=== PATIENT | male | born 1935 | race Caucasian/White ===

== ENCOUNTER 2016-09-07 08:12 | Inpatient (IN) | payer MEDICARE, OTHER ==
[2016-08-31 11:22] LABS: BASOPHILS 0.6 %; BASOPHILS ABSOLUTE 0.05 10/3/uL (0.0-0.16); EOSINOPHILS 4.4 %; EOSINOPHILS ABSOLUTE 0.38 10/3/uL (0.0-0.53); HEMATOCRIT 39.1 % (40.0-51.0); HEMOGLOBIN 13.4 g/dL (13.6-17.8); IMMATURE GRANULOCYTES 0.4 %; IMMATURE GRANULOCYTES ABSOLUTE 0.03 10/3/uL (0.0-0.11); LYMPHOCYTES 27.6 %; LYMPHOCYTES ABSOLUTE 2.36 10/3/uL (0.67-4.30); MEAN CORPUS HGB CONC 34.3 g/dL (32.0-36.0); MEAN CORPUSCULAR HEMOGLOB 30.2 pg (26.0-34.0); MEAN CORPUSCULAR VOLUME 88.1 fL (80-100); MONOCYTES 8.3 %; MONOCYTES ABSOLUTE 0.71 10/3/uL (0.21-1.20); NEUTROPHILS 58.7 %; NEUTROPHILS ABSOLUTE 5.02 10/3/uL (2.02-8.40); PLATELET COUNT 280 10/3/uL (150-400); RBC DISTRIBUTION WIDTH 14.6 % (12.0-16.0); RED CELL COUNT 4.44 10/6/uL (4.7-6.1); WHITE BLOOD CELLS 8.6 10/3/uL (4.5-10.5)
[2016-08-31 11:23] LABS: MANUAL DIFF NO %
[2016-08-31 11:25] LABS: INTERNATIONAL NORMAL RATI 1.1 UNITS (-); PROTIME (NOT ORD) 14.5 SEC (12.0-14.5)
[2016-08-31 11:28] LABS: ASCORBIC ACID (UR NOT ORDER) NEG (NEG); BILIRUBIN, URINE NEGATIVE (NEG); KETONE, URINE NEGATIVE (NEG); LEUKOCYTE ESTERASE(NOT OR NEG (NEG); WBC (NOT ORDERED) (RFLEX) < 1 (0-5)
[2016-08-31 11:43] LABS: % IRON SAT 33 % (20-50); A/G RATIO 0.8 (0.7-1.9); ALBUMIN 3.3 G/DL (3.5-5.0); ALKALINE PHOSPHATASE 105 U/L (45-117); BUN (BLOOD UREA NITROGEN) 17 MG/DL (6-23); CALCIUM, SERUM 9.2 MG/DL (8.5-10.4); CHLORIDE, SERUM 104 MMOL/L (96-112); CO2 (CARBON DIOXIDE) 29 MMOL/L (24-34); CREATININE 1.05 MG/DL (0.70-1.30); GFR AFRICAN AMERICAN 78 ML/MIN (>=60); GFR NON AFRICAN AMERICAN 67 ML/MIN (>=60); GLUCOSE, SERUM 109 MG/DL (60-99); IRON BINDING CAPACITY 283 MCG/DL (250-450); IRON, SERUM 92 MCG/DL (35-150); POTASSIUM, SERUM 4.4 MMOL/L (3.5-5.3); SGOT(AST) 13 U/L (5-40); SGPT(ALT) 16 U/L (5-65); SODIUM, SERUM 139 MMOL/L (135-148); TOTAL BILIRUBIN 0.5 MG/DL (0-1.2); TOTAL PROTEIN 7.3 G/DL (6.0-8.5)
--- NOTE | ~2016-09-07 | OP ---
Record Of Operation [facility] [address] [place]. [id number] NAME: RADHA PAULINO : 37 STATUS : ADM IN PAT#: [id number] AGE: 81 ADM/REG DATE : 09/07/16 MR#: [id number] REPORT SERV DATE: 09/08/16 DICTATED BY: REFUGIO PARRA DATE: 09/07/16 REPORT STATUS : Draft TRANSCRIBED BY: MODL DATE: 09/07/16 DATE OF PROCEDURE: 09/07/2016 PREOPERATIVE DIAGNOSES: 1. Coronary artery disease with angina. 2. Chronic systolic congestive heart failure (ejection fraction 15%). 3. Recent CVA with aphasia. 4. Cerebral vascular disease. 5. Hypertension. 6. Hyperlipidemia. POSTOPERATIVE DIAGNOSES: 1. Coronary artery disease with angina. 2. Chronic systolic congestive heart failure (ejection fraction 15%). 3. Recent CVA with aphasia. 4. Cerebral vascular disease. 5. Hypertension. 6. Hyperlipidemia. PROCEDURE PERFORMED: 1. Coronary artery bypass grafting x4, left internal mammary artery placed to left anterior descending, reverse saphenous vein graft placed to the first diagonal, reverse saphenous vein graft placed to the first obtuse marginal, reverse saphenous vein graft placed to the posterior descending artery. 2. Endoscopic vein harvest, saphenous vein from the right leg. 3. Transesophageal echocardiography. SURGEONS: Refugio Parra M.D. ASSISTANTS: César Alvarado and Ruben Mullins. ANESTHESIA: General with Dr. Correa. OFFICE AUTOMATION TECHNICIAN: Onofre Dillard M.D. PRIMARY CARE: Dr. Lino Rodriguez. INDICATIONS: This is a 81-year-old gentleman who has a history of stroke in January of last year that left him with aphasia. During his evaluation, he had an echocardiogram performed that demonstrated severely reduced ventricular function with EF of 15%. He was referred to Dr. Dillard after rehabilitation and underwent a viability study demonstrated significant areas of myocardium that appeared to be still viable. The patient was underwent cardiac catheterization, which demonstrated significant two-vessel coronary disease with 40% to 50% lesions in the RCA. Ventricular function was significantly reduced. We were asked to see the patient for possible coronary artery bypass grafting. We saw the patient at office and discussed this operation at length with him and his . After discussing the Record Of Operation [facility] [address] [address] NAME: RADHA PAULINO : 37 STATUS : ADM IN PAT#: [id number] AGE: 81 ADM/REG DATE : 09/07/16 MR#: [id number] REPORT SERV DATE: 09/08/16 DICTATED BY: REFUGIO PARRA DATE: 09/07/16 REPORT STATUS : Draft TRANSCRIBED BY: MODL DATE: 09/07/16 operations, its indication and risks, they wished to proceed. STS predicted mortality of about 8% and morbidity mortality about 20% were shared with the family. Preoperatively, the patient did have some of these films reviewed by Interventional Radiology at [place] and it was felt that the intracranial stenosis did not warrant intervention. FINDINGS AT OPERATION: 1. Cross-clamp 77 minutes. Total pump time 102 minutes. 2. The LAD was less than 1.5 mm moderately diseased. A 2.5 mm GUADARRAMA was anastomosed to it with fair runoff. This is a chronically occluded vessel. 3. The first diagonal was 1.5 mm and mildly diseased. A 4 mm RSVG was anastomosed to it with good runoff. 4. The first obtuse marginal was 1.75 mm, mildly diseased. A 4 mm RSVG was anastomosed to it with fair runoff. This was a small target and diffusely diseased. 5. The ramus intermedius was too small to graft. 6. The posterior descending artery was 2 mm, mildly diseased. A 4 mm RSVG was anastomosed to it with good runoff. 7. The vein quality was good. All grafts had good Doppler signal at the end of the case. 8. 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 9. RAHUL demonstrated reduced anterolateral wall function with mild mitral and tricuspid valve insufficiency. PATHOLOGIC SPECIMENS: None. DESCRIPTION OF PROCEDURE: The patient was brought to the operating suite where general anesthesia was induced. Airway was secured with an endotracheal tube. Lines secured by Anesthesia. Schafer catheter was placed. The patient's chest, abdomen, groin, and legs were prepped with Hibiclens and ChloraPrep and draped with Ioban sterile sheets. RAHUL probe was placed by Dr. Correa and examination carried out in my attendance and discussed with Dr. Correa. The saphenous vein was harvested from the right leg using endoscopic technique. Briefly, the vein was cut directly down upon through a 2 cm incision and placed at the medial aspect of the right knee. Then, using VasoView trocars, the vessel was dissected from the surrounding subcutaneous tissue and fat. The side branches were identified, ligated, divided with cautery. Once adequate length of vein had been dissected, a counter incision made up in the groin and in the lower leg. The vein was ligated, divided, and brought through a knee incision. The vein quality was good. The leg was made hemostatic and closed in layers with absorbable suture. The skin was closed in subcuticular fashion. Next, a midline sternal incision was made and the sternum opened with a saw. The left hemithorax was elevated and the endothoracic fascia was incised. The side branch of the JUSTINO were clipped and divided. Once the JUSTINO was completely dissected, the patient was anticoagulated with heparin and chest tube was placed to the left pleural cavity. The JUSTINO was clipped and divided distally. There was good flow through the JUSTINO and its pedicle was infiltrated with papaverine. Record Of Operation [facility] [address] [place]. [address] NAME: RADHA PAULINO : 37 STATUS : ADM IN PAT#: [id number] AGE: 81 ADM/REG DATE : 09/07/16 MR#: [id number] REPORT SERV DATE: 09/08/16 DICTATED BY: REFUGIO PARRA DATE: 09/07/16 REPORT STATUS : Draft TRANSCRIBED BY: AILEEN DATE: 09/07/16 Next, the Andres retractor was placed in the pericardium over from innominate vein. The diaphragm was T'd and tacked to the side of the chest wall. Cannulation pursestring sutures were placed, and cannulation was carried out in a routine manner. A retrograde cardioplegia cannula was placed in the coronary sinus. When all was in readiness, the patient was placed on cardiopulmonary bypass. The distal targets were marked out on the heart as described in the findings. Then, a heart support was placed. The aorta was crossclamped and initial dose of cold blood cardioplegia solution was given in a combination of antegrade and retrograde fashion, then in a retrograde manner following proximal anastomoses. Following the first dose cardioplegia, the heart was positioned for the PDA graft. Arteriotomy was made. The vein graft was trimmed and anastomosed to it with 7-0 Prolene. The vein graft was measured to the right side of the ascending aorta where it was divided. We then positioned the heart for the obtuse marginal graft. Another arteriotomy was made, and the vein graft was trimmed and anastomosed to it with 7-0 Prolene. This vein graft was then measured back to the left side of the ascending aorta where it was divided. Next, the proximal ends of these two vein grafts were anastomosed to 5 mm punch aortotomy with 6-0 Prolene. Another dose of cardioplegia was given, and we positioned the heart for the diagonal graft. Arteriotomy was made. The vein graft trimmed and anastomosed to it with 7- 0 Prolene. This vein graft was measured back to the left side of the ascending aorta where it was divided. It was later anastomosed to a 5 mm punch aortotomy with 6-0 Prolene. We then positioned the heart for the LAD graft. Warming was begun. A long arteriotomy was made in chronically occluded LAD. This vessel was small. The JUSTINO was brought out the left chest through a notch in the pericardium over the pulmonary artery. The JUSTINO was opened and anastomosed to the LAD with a running suture of 8-0 Prolene. The endothoracic fascia was tacked to epicardium. The patient was placed in Trendelenburg, and a final dose of warm blood cardioplegia was given in a retrograde fashion. Ventricular and atrial pacing wires were placed. Following the last dose of cardioplegia and deairing of the aorta, aortic cross clamp was removed. The distal and proximal anastomoses were inspected and made hemostatic. Doppler demonstrated good flow through the grafts. The heart was cardioverted twice using 10 joules of energy and the internal paddles. Loading dose of amiodarone was started. Ventilation was begun. The heart was paced atrially at rate of 80. When the heart demonstrated good contractility, it was allowed to fill and eject. When deairing was completed, the patient was taken out of Trendelenburg, and the ascending aortic vent was removed and these pursestring sutures tied and reinforced. The patient was weaned from cardiopulmonary bypass with inotropic support. The venous cannula was removed and these pursestring sutures tied. RAHUL examination demonstrated improved ventricular function, it was still reduced. There was mild mitral valve insufficiency. Protamine was administered by Anesthesia and following a period of hemodynamic stability, Record Of [facility] [address] [place]. [address] NAME: RADHA PAULINO : 37 STATUS : ADM IN PAT#: [id number] AGE: 81 ADM/REG DATE : 09/07/16 MR#: [id number] REPORT SERV DATE: 09/08/16 DICTATED BY: REFUGIO PARRA DATE: 09/07/16 REPORT STATUS : Draft TRANSCRIBED BY: AILEEN DATE: 09/07/16 the aortic cannula was removed, and these pursestring sutures tied and reinforced. The patient continued do well and chest was irrigated copiously with saline. Meticulous hemostasis was obtained. Hemasorb was placed along the cut edge of the sternum. Once hemostasis was assured, the pericardium was draped over the anterior surface of heart and tacked in position. Doppler demonstrated good flow through the grafts following protamine administration. Then, chest tubes were placed and the sternum reapproximated with 8 sternal wires. The clavipectoral fascia and linea alba closed with #1 Stratafix. The subcutaneous tissue was closed with 2-0 Stratafix and skin was closed in subcuticular fashion. The patient tolerated the procedure well. There were no complications. Sponge and needle counts were correct. DISPOSITION: The patient was left intubated, sedated, and transported to the intensive care unit in a stable condition. OLGA/AILEEN Refugio Parra M.D. / [id number] CC: Dav Mar MD R. Edward Bowers
--- NOTE | ~2016-09-07 | HP ---
History And Physical [address] [place]. [address] NAME: RADHA PAULINO : 37 STATUS : DIS IN PAT#: [id number] AGE: 81 ADM/REG DATE : 09/07/16 MR#: [id number] REPORT SERV DATE: 10/19/16 DICTATED BY: OTONIEL HERNANDEZ DATE: 10/19/16 REPORT STATUS : Draft TRANSCRIBED BY: MODJesika DATE: 10/19/16 DATE OF ADMISSION: 09/07/2016 REFERRING OCCUPATIONAL THER: Onofre Dillard MD. CHIEF COMPLAINT: "I have a heart problem". HISTORY OF PRESENT ILLNESS: This is a 81-year-old gentleman with prior history of CVA last January. This left him with significant aphasia, but with good functional status. During his evaluation for his stroke, he had an echocardiogram that demonstrated reduced left ventricular function, with ejection fraction of 15% to 20%. Followup cardiology appointment was scheduled, and he underwent cardiac catheterization that demonstrated significant coronary artery disease, and he had a viability study because of his low EF. This demonstrated significant reversible myocardium. On echo, he also was noted to have mild to moderate mitral and tricuspid insufficiency. The patient was seen in the office. At that time, he had no unstable anginal-type symptoms. He reported some mild substernal discomfort and shortness of breath with exertion. He had some mild peripheral edema. He did continue to have significant aphasia. There was implantable loop recorder interrogation that demonstrated only normal sinus rhythm. 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 This was discussed with Renny Gallardo, interventionalist at [place], and he felt that no intervention or surgery was indicated. We talked with the patient and his in the office about possible coronary artery bypass grafting for his 2-vessel coronary artery disease and potential reversible myocardial ischemia. Dr. Parra talked with him about the risks and usual perioperative course, and this is all documented in our office notes. The patient presents for surgery as scheduled. PRIOR MEDICAL HISTORY: Significant for coronary artery disease, ischemic cardiomyopathy, acute on chronic systolic heart failure, stroke, and hypertension. Also, has history of diabetes mellitus, anxiety, depression. PRIOR SURGICAL HISTORY: Significant for right total knee arthroplasty, previous herniorrhaphy, and coronary arteriogram. SOCIAL HISTORY: He is , never smoker, and does not use alcohol or illicit drugs. He worked out regularly at a health club prior to his stroke. FAMILY HISTORY: Significant for father with diabetes mellitus type 2 and stroke, mother with type 2 diabetes mellitus, hypertension, and congestive heart failure, one sister with diabetes mellitus. ALLERGIES: INCLUDE ATORVASTATIN. History And Physical [address] [address] NAME: RADHA PAULINO : 37 STATUS : DIS IN PAT#: [id number] AGE: 81 ADM/REG DATE : 09/07/16 MR#: [id number] REPORT SERV DATE: 10/19/16 DICTATED BY: OTONIEL HERNANDEZ DATE: 10/19/16 REPORT STATUS : Draft TRANSCRIBED BY: AILEEN DATE: 10/19/16 MEDICATIONS: Include aspirin, clopidogrel, Crestor, spironolactone, vitamin B12, and vitamin D3. REVIEW OF SYSTEMS: GENERAL: Positive for weight loss since his stroke, negative for malaise, fevers, chills, or night sweats. ENT: Positive for presbyopia and hearing loss. RESPIRATORY: Negative for hemoptysis, paroxysmal nocturnal dyspnea or orthopnea, negative for wheezing, positive for snoring. CV: Positive for his chest discomfort, negative for diaphoresis, orthopnea, palpitations, syncope, or murmur. No paroxysmal nocturnal dyspnea. VASCULAR: Negative for claudication. Negative for varicosities, positive for edema. GI: Negative for bleeding at stool or vomiting blood. Negative for diarrhea or constipation. : Negative for hematuria, nocturia, or frequency. Negative for kidney problems or prostate problems. ENDOCRINE: Negative for tremors or goiter. NEURO: Negative for dizziness, seizures. Positive for memory loss, previous stroke. PSYCH: Positive for anxiety and depression. MUSCULOSKELETAL: Negative for myalgia. Positive for joint pain. HEME/ONC: Negative for blood clots or easy bruising. PHYSICAL EXAMINATION: GENERAL: He is a pleasant elderly male, in no acute distress. He is well nourished and well developed. HEENT: Normocephalic, atraumatic. Pupils equal, round, reactive to light and accommodation, sclerae clear, conjunctivae pink. Oral and buccal mucosa: [place], moist, no lesions or masses. NECK: Supple, no restricted range of motion. No carotid bruits. No jugular venous distention. CHEST: Clear to auscultation, no use of accessory muscles, no chest wall tenderness. No deformity. CV: Regular rate and rhythm without murmur or rub. He has palpable and symmetric central and peripheral pulses, no clubbing, cyanosis, or edema. No lower extremity varicosities, no edema, and he has palpable and symmetric central and peripheral pulses. ABDOMEN: Soft, obese, nontender with normoactive bowel sounds. No hepatosplenomegaly. /RECTAL: Declined. MUSCULOSKELETAL: No kyphoscoliosis. No asymmetry. He ambulates without assistance and is able to exercise. SKIN, HAIR, AND NAILS: Warm and dry without lesions, masses, or rashes. Good hygiene. NEURO/PSYCH: He is alert, and has expressive aphasia. He has facial asymmetry with weakness on the right. He is oriented to day, date, place, and person, and mood is appropriate. DATA: His coronary arteriogram and viability study which were reviewed in the office. IMPRESSION: Significant 2-vessel coronary artery disease with severely reduced left History And Physical [address] [address] NAME: RADHA PAULINO : 37 STATUS : DIS IN PAT#: [id number] AGE: 81 ADM/REG DATE : 09/07/16 MR#: [id number] REPORT SERV DATE: 10/19/16 DICTATED BY: OTONIEL HERNANDEZ DATE: 10/19/16 REPORT STATUS : Draft TRANSCRIBED BY: MODL DATE: 10/19/16 ventricular ejection fraction. His viability study demonstrated reversible myocardial ischemia. We discussed possible bypass surgery with the patient and his in the office and he indicated his understanding and agreement with the plan. Plan is to proceed with coronary artery bypass grafting on date of admission. MSL/MODL Otoniel Hernandez N.P. / [id number] CC: Dav Mar
--- NOTE | ~2016-09-07 | CN ---
Consultation Report [facility] [address] [place]. [address] NAME: RADHA PAULINO : 39 STATUS : ADM IN PAT#: [id number] AGE: 81 ADM/REG DATE : 09/07/16 MR#: [id number] REPORT SERV DATE: 09/09/16 DICTATED BY: DEYSI GODINEZ DATE: 09/08/16 REPORT STATUS : Draft TRANSCRIBED BY: MODL DATE: 09/08/16 CONSULTATION DATE OF CONSULTATION: 09/08/2016 REASON FOR CONSULTATION: Consulted for diabetes management. IDENTIFYING DATA: LINOTYPIST: In the past Lewis Hess M.D., now Onofre Dillard MD. CARDIAC SURGEON: Dominic Parra M.D. ORTHOPEDIST IN THE PAST: Ishan Treadwell M.D. HISTORY OF PRESENT ILLNESS: This is a very pleasant 81-year-old gentleman who has a history of a previous stroke in January of last year for which he is now expressive aphasia and memory loss. During that evaluation, the patient had an echocardiogram that showed severely reduced ventricular function with an EF of 15% to 20%. He was referred to Dr. Dillard after rehab and underwent a viability study that showed areas of the myocardium that were still viable. The patient had a cardiac catheterization, which showed a 2-vessel coronary disease with 40% to 50% lesions in RCA. His ventricular function was reduced. He is presently admitted under Dr. Dominic Parra for which he had a CABG x4, with VasoView, RAHUL, REVH, GUADARRAMA. He is postop on 09/07/2016, this is postop day #1. The patient is on an insulin drip per protocol for postop on CABG surgery. He does have a history of being diabetic type 2 along with hyperlipidemia, coronary artery disease with angina, dysrhythmias, GERD, chronic systolic heart failure, and previous CVA and TIA, and hypertension. A hospitalist group has been consulted for diabetes management to wean the patient from the insulin drip and provide insulin coverage. The patient's history was obtained through careful interview with the patient, which was difficult. He has expressive aphasia and some memory loss. Also coupled with review of [employer], [employer], other consultants' notes, and old medical records. His is not available for consultation at present time. PAST MEDICAL HISTORY: 1. CVA. 2. TIA. 3. Hypertension. 4. Cardiomyopathy. 5. Wears reading glasses. 6. Chronic systolic heart failure. 7. GERD. 8. Hemorrhoids. Consultation Report [place] [address] [place]. [address] NAME: RADHA PAULINO : 37 STATUS : ADM IN PAT#: [id number] AGE: 81 ADM/REG DATE : 09/07/16 MR#: [id number] REPORT SERV DATE: 09/09/16 DICTATED BY: DEYSI GODINEZ DATE: 09/08/16 REPORT STATUS : Draft TRANSCRIBED BY: AILEEN DATE: 09/08/16 9. Hay fever. 10.Presbyopia. 11.Angina. 12.Dysrhythmias. 13.Arthritis. 14.Diabetes type 2. 15.Anxiety. 16.Depression. 17.Mitral valve insufficiency. 18.Hyperlipidemia. 19.Coronary artery disease with angina. HOME MEDICATIONS: 1. Aspirin 81 mg p.o. daily. 2. Coreg 6.25 mg p.o. twice a day. 3. Vitamin D3 5000 units p.o. daily. 4. Plavix 75 mg p.o. daily. 5. Vitamin B12 1000 mcg p.o. daily. 6. Lasix 20 mg p.o. daily. 7. Glucotrol 5 mg p.o. before breakfast. 8. Lisinopril 10 mg p.o. twice a day. 9. Aldactone 25 mg p.o. daily. ALLERGIES: TO LISINOPRIL, WHICH CAUSES HAND SWELLING AND MUSCLE ACHES. SOCIAL HISTORY: The patient is . He does not smoke, drink, or use illicit drugs. He states he has two children, a daughter and a son, which the son is . He had a total of four children, which two of those were foster children. FAMILY HISTORY: 1. Father had diabetes type 2 and CVA; mother had CHF, diabetes type 2, hypertension; is at age 5353 years old. 2. Sister had diabetes type 2. SURGICAL HISTORY: 1. Bilateral total knee replacement, 2001. 2. Hernia surgery, which the patient notes was years ago. 3. Noted loop recorder on 02/2016. REVIEW OF SYSTEMS: Negative other than what is included in HPI. The patient is alert, oriented, has expressive aphasia. Does display some poor memory. He has no complaints of shortness of breath. No nausea and vomiting. No abdominal pain or diarrhea. Displays no agitation or confusion. No complaints of chest pain. No fever. Consultation Report [address] [place]. [address] NAME: RADHA PAULINO : 39 STATUS : ADM IN PAT#: [id number] AGE: 81 ADM/REG DATE : 09/07/16 MR#: [id number] REPORT SERV DATE: 09/09/16 DICTATED BY: DEYSI GODINEZ DATE: 09/08/16 REPORT STATUS : Draft TRANSCRIBED BY: AILEEN DATE: 09/08/16 PHYSICAL EXAMINATION: VITAL SIGNS: From today: Blood pressure 156/66, heart rate 67, respiratory rate 18, O2 saturation 94% on room air. GENERAL: This is a very pleasant 81-year-old male, resting in bed, in no acute distress. NEURO: His head is atraumatic, normocephalic. He is alert and oriented x3. He does have memory problems relating to a previous CVA and also expressive aphasia. His mood is pleasant and appropriate. NECK: Supple. Trachea is midline. No JVD noted. No obvious thyromegaly or lymphadenopathy. He does have a dressing from the old IV site to the right neck area. The dressing is clean, dry, and intact. EENT: Sclerae are nonicteric. Pupils are equal, reactive to light. His nares are patent. Mucous membranes moist. Tongue is midline without deviation. Soft palate rises equally on phonation. CHEST: No pain with palpation. The patient has a dressing to his midline sternotomy, pacing wires are beneath dressings bilaterally. LUNGS: Clear to auscultation bilaterally. The patient has normal respiratory effort. No increased work of breathing with conversation. CARDIOVASCULAR: S1, S2. The patient is on telemetry, displays a sinus rhythm with a rate of 64. ABDOMEN: Soft, nontender, with active bowel sounds. No palpable organomegaly. Last bowel movement was noted on 09/06/2016. EXTREMITIES: Normal distal pulses. No calf tenderness. No edema. Has bilateral TEDs intact for DVT prophylaxis. SKIN: Warm and dry. No unusual rashes or lesions. Normal color and turgor. PSYCH: The patient is pleasant and cooperative, appropriate mood and affect. He does realize that he has memory loss and tries to state that frequently. He also consistently relates to his having aphasia. SURGICAL WOUND SITE: His dressing is clean, dry, and intact. He does have chest tubes intact to the sternal area to atrium at -20 cm of suction with serosanguineous drainage noted. LABORATORY DATA: 1. Sodium 144, potassium 4.9, chloride 110, BUN 16, creatinine 0.84, GFR 97, glucose 134, calcium 8.5, magnesium 2.3. White blood cell 13.2, hemoglobin 10.0, hematocrit 29.2, platelets 148, INR 1.3. His present blood sugar was 145. On 09/08/2016, portable chest x-ray showed minimal bibasilar and left perihilar atelectasis. His chest tubes remain in place. 2. EKG shows normal sinus rhythm, rate of 63, where he had a left axis deviation and T- wave abnormality. 3. MRI of his head in 01/2016, showed a late hyperacute to acute infarct in the left temporoparietal region of the MCA territory. 4. In 02/04/2016, an echo showed an EF of 15% to 20%, [id number]-mr-[id number] MR and TR. 5. Carotid duplex also performed showed mild atherosclerotic plaque with a right carotid bulb and ICA. Consultation Report [address] [address] NAME: RADHA PAULINO : 39 STATUS : ADM IN [facility]#: [id number] AGE: 81 ADM/REG DATE : 09/07/16 MR#: [id number] REPORT SERV DATE: 09/09/16 DICTATED BY: DEYSI GODINEZ DATE: 09/08/16 REPORT STATUS : Draft TRANSCRIBED BY: AILEEN DATE: 09/08/16 ASSESSMENT AND PLAN: 1. Diabetes type 2. Aware. The patient's average blood sugars as noted were 117 to 170s. He had a hemoglobin A1c obtained on 08/31/2016, that showed his A1c as 6.0. The patient is on glipizide at home. He states his checks his blood sugars. She takes care of his medications, he cannot relate what medications he actually is taking. He is on an insulin drip at 1.5 unit/hour. His blood sugars are 130. His drip is discontinued now, we will give him Levemir 5 units sub[address] x[address] him on fingerstick blood sugars a.c. and h.s. with a level 2. We will check a fingerstick blood sugar at 2 a.m. x1. We will have a museum educator talk to him, but his does need to be available because she takes care of his needs at home. His glipizide is still on hold. After blood sugar checks, it may be noted that he needs to be on Levemir b.i.d. that will need to be assessed during the day when he is eating with his meals and noting his blood sugars. 2. Coronary artery disease. We are aware the patient has a history of hypertension, he is status post coronary artery bypass graft x4. He also has had a previous cerebrovascular accident. Management is per Cardiology. He is remaining on his Cordarone, aspirin, Lopressor, and Plavix per Cardiology. 3. Hyperlipidemia. Aware. The patient is continued on his Crestor. 4. AM labs. He has ordered a BMP, magnesium, CBC, PT and a PA and lateral chest x-ray for this a.m. The hospitalist group would like to thank you for this consultation. Let us know if we can be of any further assistance. LOGAN Deysi Godinez NP / [id number] CC: Dav Mar
--- NOTE | ~2016-09-07 | DS ---
Discharge Summary [facility] [address] [place]. [address] NAME: RADHA PAULINO : 39 STATUS : DIS IN PAT#: [id number] AGE: 81 ADM/REG DATE : 09/07/16 MR#: [id number] REPORT SERV DATE: 10/19/16 DICTATED BY: OTONIEL HERNANDEZ DATE: 10/19/16 REPORT STATUS : Draft TRANSCRIBED BY: MODL DATE: 10/19/16 ADMISSION DATE: 09/07/2016 DISCHARGE DATE: 09/11/2016 CONSULTANTS: 1. Hospitalist service for management of hyperglycemia and diabetes. 2. Trever Dillard MD for [facility]. PROCEDURES DURING ADMISSION: The patient underwent coronary artery bypass grafting x4 with left internal mammary artery to the left anterior descending, reverse saphenous vein graft to the first diagonal branch,reverse saphenous vein graft to the first obtuse marginal, reverse saphenous vein graft to the posterior descending artery, endoscopic vein harvest of the right leg, saphenous vein, and transesophageal echocardiogram. CONDITION AT DISCHARGE: Stable, improved. PLAN AT DISCHARGE: The patient was given written instructions and was discharged to home with family member. He had followup appointment with Dr. Dillard for 10/07/2016 at 09:15 a.m., one for Dr. Otoniel Hernandez on 10/28/2016 at 02:00 p.m. MEDICATIONS AT DISCHARGE: See medication discharge summary in [facility]. HOSPITAL COURSE: The patient was admitted and underwent the above-mentioned surgery on the date of admission. On postoperative day #1, he was awake and alert. He was extubated. Skin is warm, dry. His mediastinal left pleural chest tube had a total of 500 mL of serosanguineous drainage. His labs were within normal limits, hemoglobin was 8.9, hematocrit 25.9%, and his creatinine was 0.84. He was seen by Cardiology service. Plans were made for transfer to the cardiac step-down unit. On the second postoperative day, he was awake and alert. He had leukocytosis which was not unexpected after intraoperative steroids were given. His chest tubes were discontinued. His pacing wires were discontinued. His labs were unremarkable with improvement in his hemoglobin and hematocrit. On postoperative day 3, he was in a normal sinus rhythm. He had moved his bowels, and had plan for echocardiography to evaluate his ejection fraction. His CBC was stable, his white count had decreased to 12.8. Serum creatinine is stable at 0.87. His echocardiogram showed improvement in the ejection fraction to 35%. The patient was given instructions for discharge and Cardiology agreed with discharge to home. DICTATED BY: Micky Ba/AILEEN Otoniel Hernandez N.P. Discharge Summary [address] [address] NAME: RADHA PAULINO : 39 STATUS : DIS IN PAT#: [id number] AGE: 81 ADM/REG DATE : 09/07/16 MR#: [id number] REPORT SERV DATE: 10/19/16 DICTATED BY: OTONIEL HERNANDEZ DATE: 10/19/16 REPORT STATUS : Draft TRANSCRIBED BY: AILEEN DATE: 10/19/16 / [id number] CC: Dav Mar
[~2016-09-07 08:12] MED LIST: ADVIL PO; ASAB PO; ASABAYER PO; BANOPHEN25 MG PO; BEN25 PO; COREG6 PO; D 5000 PO; FOLIC PO; GLUCOTROL5 PO; L20 PO; LIPITOR40 PO; LOP25 PO; PLAVIX PO; PRIN10 PO; PROTONIX PO; SPIRO25 PO; ULTRAM50 PO; VITAMIN B-121000 MC1 PO; VITAMIN D31000 UNIT PO; ZYRTEC ALLGY10 MG PO
[2016-09-07 18:10] LABS: BE (BASE EXCESS) -2.1 MEQ/L (0 +/- 2.5); CARBOXYHEMOGLOBIN 0.3 % (0-3); HCO3 (ACTUAL BICARBONATE) 22.6 MEQ/L (23-27); HEMOBLOGIN CONTENT 11.7 G/DL (14-18); INSTRUMENT SERIAL # 11843; METHEMOGLOBIN 0.7 % (0-3); MODE SIMV; O2 CONTENT 17.4 VOL% (18-24); OPERATOR ID 32214; PCO2 (CO2 TENSION) 39 MMHG (35-45); PO2 (O2 TENSION) 456 MMHG (79-93); SAMPLE Arterial; TIDAL VOLUME 700 ML; pH 7.39 (7.37-7.43)
[2016-09-07 18:17] LABS: HEMOGLOBIN 10.8 g/dL (13.6-17.8)
[2016-09-07 18:21] LABS: HEMATOCRIT 31.2 % (40.0-51.0); PLATELET COUNT 91 10/3/uL (150-400)
[2016-09-07 18:25] LABS: INTERNATIONAL NORMAL RATI 1.7 UNITS (-); PARTIAL THROMBO TIME 37.3 SEC (22.5-37.2)
[2016-09-07 18:27] LABS: PROTIME (NOT ORD) 20.1 SEC (12.0-14.5)
[2016-09-07 18:30] LABS: BUN (BLOOD UREA NITROGEN) 13 MG/DL (6-23); CALCIUM, SERUM 7.9 MG/DL (8.5-10.4); CHLORIDE, SERUM 113 MMOL/L (96-112); CO2 (CARBON DIOXIDE) 23 MMOL/L (24-34); CREATININE 0.96 MG/DL (0.70-1.30); GFR AFRICAN AMERICAN 87 ML/MIN (>=60); GFR NON AFRICAN AMERICAN 75 ML/MIN (>=60); GLUCOSE, SERUM 106 MG/DL (60-99); POTASSIUM, SERUM 3.2 MMOL/L (3.5-5.3); SODIUM, SERUM 145 MMOL/L (135-148)
[2016-09-08 00:40] LABS: HEMOGLOBIN 9.2 g/dL (13.6-17.8)
[2016-09-08 00:41] LABS: HEMATOCRIT 26.2 % (40.0-51.0)
[2016-09-08 00:44] LABS: BE (BASE EXCESS) -2.6 MEQ/L (0 +/- 2.5); CARBOXYHEMOGLOBIN 0.3 % (0-3); HCO3 (ACTUAL BICARBONATE) 20.7 MEQ/L (23-27); INSTRUMENT SERIAL # 11843; METHEMOGLOBIN 0.6 % (0-3); PCO2 (CO2 TENSION) 31 MMHG (35-45); PO2 (O2 TENSION) 161 MMHG (79-93); pH 7.45 (7.37-7.43)
[2016-09-08 00:45] LABS: DEVICE NC; HEMOBLOGIN CONTENT 9.8 G/DL (14-18); O2 CONTENT 13.8 VOL% (18-24); SAMPLE Arterial
[2016-09-08 04:05] LABS: BASOPHILS 0.1 %; BASOPHILS ABSOLUTE 0.01 10/3/uL (0.0-0.16); EOSINOPHILS 0 %; HEMATOCRIT 25.9 % (40.0-51.0); HEMOGLOBIN 8.9 g/dL (13.6-17.8); IMMATURE GRANULOCYTES 0.5 %; IMMATURE GRANULOCYTES ABSOLUTE 0.07 10/3/uL (0.0-0.11); LYMPHOCYTES 4.5 %; MANUAL DIFF NO %; MEAN CORPUS HGB CONC 34.4 g/dL (32.0-36.0); MEAN CORPUSCULAR VOLUME 87.2 fL (80-100); MEAN PLATELET VOLUME 10.4 fL (9.2-13.0); MONOCYTES 9.8 %; MONOCYTES ABSOLUTE 1.29 10/3/uL (0.21-1.20); NEUTROPHILS 85.1 %; NEUTROPHILS ABSOLUTE 11.25 10/3/uL (2.02-8.40); PLATELET COUNT 148 10/3/uL (150-400); RBC DISTRIBUTION WIDTH 15.3 % (12.0-16.0); RED CELL COUNT 2.97 10/6/uL (4.7-6.1); WHITE BLOOD CELLS 13.2 10/3/uL (4.5-10.5)
[2016-09-08 04:10] LABS: INTERNATIONAL NORMAL RATI 1.3 UNITS (-)
[2016-09-08 04:16] LABS: BUN (BLOOD UREA NITROGEN) 16 MG/DL (6-23); CALCIUM, SERUM 8.5 MG/DL (8.5-10.4); CHLORIDE, SERUM 110 MMOL/L (96-112); CO2 (CARBON DIOXIDE) 25 MMOL/L (24-34); CREATININE 0.84 MG/DL (0.70-1.30); GFR AFRICAN AMERICAN 97 ML/MIN (>=60); GFR NON AFRICAN AMERICAN 83 ML/MIN (>=60); POTASSIUM, SERUM 4.3 MMOL/L (3.5-5.3); PROTIME (NOT ORD) 16.5 SEC (12.0-14.5); SODIUM, SERUM 144 MMOL/L (135-148)
[2016-09-08 04:22] LABS: GLUCOSE, SERUM 134 MG/DL (60-99)
[2016-09-08 15:57] LABS: HEMATOCRIT 29.2 % (40.0-51.0)
[2016-09-08 16:11] LABS: POTASSIUM, SERUM 4.9 MMOL/L (3.5-5.3)
[2016-09-09 06:26] LABS: BASOPHILS 0.1 %; BASOPHILS ABSOLUTE 0.01 10/3/uL (0.0-0.16); EOSINOPHILS 0.1 %; EOSINOPHILS ABSOLUTE 0.01 10/3/uL (0.0-0.53); HEMOGLOBIN 9.3 g/dL (13.6-17.8); IMMATURE GRANULOCYTES 0.4 %; IMMATURE GRANULOCYTES ABSOLUTE 0.06 10/3/uL (0.0-0.11); LYMPHOCYTES 11.4 %; LYMPHOCYTES ABSOLUTE 1.91 10/3/uL (0.67-4.30); MEAN CORPUS HGB CONC 33.2 g/dL (32.0-36.0); MEAN CORPUSCULAR HEMOGLOB 29.7 pg (26.0-34.0); MEAN CORPUSCULAR VOLUME 89.5 fL (80-100); MEAN PLATELET VOLUME 11.2 fL (9.2-13.0); MONOCYTES 13.7 %; MONOCYTES ABSOLUTE 2.31 10/3/uL (0.21-1.20); NEUTROPHILS 74.3 %; NEUTROPHILS ABSOLUTE 12.51 10/3/uL (2.02-8.40); PLATELET COUNT 164 10/3/uL (150-400); RBC DISTRIBUTION WIDTH 15.7 % (12.0-16.0); RED CELL COUNT 3.13 10/6/uL (4.7-6.1); WHITE BLOOD CELLS 16.8 10/3/uL (4.5-10.5)
[2016-09-09 06:28] LABS: INTERNATIONAL NORMAL RATI 1.4 UNITS (-); PROTIME (NOT ORD) 17.1 SEC (12.0-14.5)
[2016-09-09 06:39] LABS: MANUAL DIFF NO %
[2016-09-09 06:48] LABS: CHLORIDE, SERUM 104 MMOL/L (96-112); CO2 (CARBON DIOXIDE) 24 MMOL/L (24-34); CREATININE 0.94 MG/DL (0.70-1.30); GFR AFRICAN AMERICAN 89 ML/MIN (>=60); GFR NON AFRICAN AMERICAN 77 ML/MIN (>=60); GLUCOSE, SERUM 124 MG/DL (60-99); POTASSIUM, SERUM 4.5 MMOL/L (3.5-5.3); SODIUM, SERUM 138 MMOL/L (135-148)
[2016-09-09 06:50] LABS: BUN (BLOOD UREA NITROGEN) 25 MG/DL (6-23); CALCIUM, SERUM 10.2 MG/DL (8.5-10.4)
[2016-09-10 04:57] LABS: HEMATOCRIT 25.9 % (40.0-51.0); HEMOGLOBIN 8.8 g/dL (13.6-17.8); MEAN CORPUSCULAR VOLUME 88.4 fL (80-100); MEAN PLATELET VOLUME 11.4 fL (9.2-13.0); PLATELET COUNT 149 10/3/uL (150-400); RBC DISTRIBUTION WIDTH 15.5 % (12.0-16.0); RED CELL COUNT 2.93 10/6/uL (4.7-6.1); WHITE BLOOD CELLS 12.8 10/3/uL (4.5-10.5)
[2016-09-10 04:58] LABS: MANUAL DIFF YES %
[2016-09-10 05:20] LABS: BUN (BLOOD UREA NITROGEN) 24 MG/DL (6-23); CHLORIDE, SERUM 106 MMOL/L (96-112); CO2 (CARBON DIOXIDE) 26 MMOL/L (24-34); CREATININE 0.87 MG/DL (0.70-1.30); GFR AFRICAN AMERICAN 95 ML/MIN (>=60); GFR NON AFRICAN AMERICAN 82 ML/MIN (>=60); GLUCOSE, SERUM 137 MG/DL (60-99); POTASSIUM, SERUM 3.9 MMOL/L (3.5-5.3); SODIUM, SERUM 141 MMOL/L (135-148)
[2016-09-10 05:26] LABS: CALCIUM, SERUM 7.7 MG/DL (8.5-10.4)
[2016-09-10 05:54] LABS: BAND NEUTROPHILS 1 %; LYMPHOCYTES 9 %; LYMPHOCYTES ABSOLUTE (CALC) 1.15 10/3/uL (0.67-4.30); MONOCYTES 5 %; MONOCYTES ABSOLUTE (CALC) 0.64 10/3/uL (0.21-1.20); NEUTROPHILS ABSOLUTE (CALC) 11.01 10/3/uL (2.02-8.40); PLATELET ESTIMATE ADQ (ADEQUATE); RBC MORPHOLOGY NORM (NORMAL); SEGMENTED NEUTROPHIL (0) 85 %; TOTAL NUCLEATED CELLS 100
[2016-09-11 04:23] LABS: BASOPHILS 0.2 %; BASOPHILS ABSOLUTE 0.03 10/3/uL (0.0-0.16); EOSINOPHILS 0.5 %; EOSINOPHILS ABSOLUTE 0.07 10/3/uL (0.0-0.53); HEMATOCRIT 27.4 % (40.0-51.0); HEMOGLOBIN 9.3 g/dL (13.6-17.8); IMMATURE GRANULOCYTES 0.5 %; IMMATURE GRANULOCYTES ABSOLUTE 0.07 10/3/uL (0.0-0.11); LYMPHOCYTES 21.1 %; LYMPHOCYTES ABSOLUTE 2.76 10/3/uL (0.67-4.30); MEAN CORPUS HGB CONC 33.9 g/dL (32.0-36.0); MEAN CORPUSCULAR HEMOGLOB 29.9 pg (26.0-34.0); MEAN CORPUSCULAR VOLUME 88.1 fL (80-100); MEAN PLATELET VOLUME 11.2 fL (9.2-13.0); MONOCYTES 14.6 %; MONOCYTES ABSOLUTE 1.91 10/3/uL (0.21-1.20); NEUTROPHILS 63.1 %; NEUTROPHILS ABSOLUTE 8.22 10/3/uL (2.02-8.40); RBC DISTRIBUTION WIDTH 15.6 % (12.0-16.0); RED CELL COUNT 3.11 10/6/uL (4.7-6.1); WHITE BLOOD CELLS 13.1 10/3/uL (4.5-10.5)
[2016-09-11 04:25] LABS: MANUAL DIFF NO %; PLATELET COUNT 198 10/3/uL (150-400)
[2016-09-11 05:20] LABS: BUN (BLOOD UREA NITROGEN) 27 MG/DL (6-23); CHLORIDE, SERUM 105 MMOL/L (96-112); CO2 (CARBON DIOXIDE) 25 MMOL/L (24-34); CREATININE 1.03 MG/DL (0.70-1.30); GFR AFRICAN AMERICAN 80 ML/MIN (>=60); GFR NON AFRICAN AMERICAN 69 ML/MIN (>=60); GLUCOSE, SERUM 119 MG/DL (60-99); POTASSIUM, SERUM 4.4 MMOL/L (3.5-5.3); SODIUM, SERUM 141 MMOL/L (135-148)
[2016-09-11 05:25] LABS: CALCIUM, SERUM 8.7 MG/DL (8.5-10.4)
[2016-09-11] MEDS ORDERED: NORCO1 TA1 PO (09:17)
[2016-09-11] MEDS ORDERED: LOP25 PO (09:18)
[2016-09-11] MEDS ORDERED: CRESTOR10 PO (09:18)
[2016-09-11] MEDS ORDERED: PERI-COLACE1 TAB PO (09:19)
== END 2016-09-11 12:33 | disposition home or self-care (01) | DRG 236 ==
LOC: SDC/OF 08:12 → CVICU 16:43 → SDC/OF 16:54 → CVICU 16:55 → 5NO 09-08 15:13 → SDC/OF 09-10 09:12 → 5NO 09-10 09:13
PROVIDERS: Internal Medicine Cardiovascular Disease; Nurse Practitioner Family; Thoracic Surgery (Cardiothoracic Vascular Surgery)
PROC: 06BP0ZZ Excision of Right Saphenous Vein, Open Approach (ICD-10-PCS; 2016-09-07)
PROC: 5A1221Z Performance of Cardiac Output, Continuous (ICD-10-PCS; 2016-09-07)
PROC: B246ZZ4 Ultrasonography of Right and Left Heart, Transesophageal (ICD-10-PCS; 2016-09-07)
PROC: 30233R1 Transfusion of Nonautologous Platelets into Peripheral Vein, Percutaneous Approach (ICD-10-PCS; 2016-09-07)
PROC: 30233K1 Transfusion of Nonautologous Frozen Plasma into Peripheral Vein, Percutaneous Approach (ICD-10-PCS; 2016-09-07)
PROC: 021209W Bypass Coronary Artery, Three Arteries from Aorta with Autologous Venous Tissue, Open Approach (ICD-10-PCS; principal; 2016-09-07 14:30)
PROC: 0210099 Bypass Coronary Artery, One Artery from Left Internal Mammary with Autologous Venous Tissue, Open Approach (ICD-10-PCS; 2016-09-07 14:30)
DX: I25.10 Atherosclerotic heart disease of native coronary artery without angina pectoris (principal); I50.22 Chronic systolic (congestive) heart failure; I69.920 Aphasia following unspecified cerebrovascular disease; I25.110 Atherosclerotic heart disease of native coronary artery with unstable angina pectoris; J98.11 Atelectasis; I10 Essential (primary) hypertension; E78.5 Hyperlipidemia, unspecified; I25.5 Ischemic cardiomyopathy
CPT/HCPCS: 36415; 71010; 71020; 80048; 80053; 81001; 82330; 82803; 82805; 82947; 82962; 83036; 83540; 83550; 83735; 84132; 84295; 85014; 85018; 85025; 85049; 85347; 85384; 85576; 85576-59; 85610; 85730; 86850; 86900; 86901; 86920; 87641; 93005; 93312; 93320; 93325; 94002; 94640; 94660; 94770; 97161-GP; A9270-GY; C1713; C1769; C1894; C8924; G8978-CH-GP; G8979-CH-GP; G8980-CH-GP; J0282; J0690; J1644; J2150; J2250; J2370; J2440; J2720; J2795; J2930; J3010; J3475; J3480; P9035; P9045; P9047; P9059; Q9957